=== PATIENT | female | born 1950 ===

== ENCOUNTER → 2023-03-01 | Outpatient (CLI) | payer OTHER ==
[2023-03-01 12:53] LABS: Basophils # (auto) 0 10 ^3/uL (0-0.2); Eosinophils # (auto) 0.2 10 ^3/uL (0-0.8); Eosinophils % (auto) 4.2 % (0.0-7.0); Hemoglobin 12.1 g/dL (12.2-16.2); Lymphocytes # (auto) 1.9 10 ^3/uL (0.4-5.4); Lymphocytes % (auto) 38.9 % (10.0-50.0); Mean Corpuscular Hemoglobin 30.3 pg (28.0-32.0); Mean Corpuscular Hgb Conc. 32.8 g/dL (32.0-36.0); Mean Corpuscular Volume 92.2 fL (80.0-100.0); Monocytes # (auto) 0.3 10 ^3/uL (0-1.3); Monocytes % (auto) 6.2 % (0.0-12.0); Neutrophils # (auto) 2.4 10 ^3/uL (1.6-8.6); Neutrophils % (auto) 49.7 % (37.0-80.0); Nucleated Red Blood Cells % 0.2 %; Red Blood Cells 4.01 10^6/uL (4.0-5.20); Red Cell Distribution Width 13.3 % (11.8-14.3); White Blood Cell 4.8 10^3/uL (4.4-10.8)
[2023-03-01 12:58] LABS: Potassium 4.4 mmol/L (3.5-5.1)
[2023-03-01 13:07] LABS: Albumin 3.6 g/dL (3.4-5.0); BUN/Creatinine Ratio 17.6 (10.0-20.0); Bilirubin, Total 0.5 mg/dL (0.2-1.0); Total Protein 7.1 g/dL (6.4-8.2)
== END | disposition home or self-care (01) ==
LOC: LAB 12:13
PROVIDERS: ATTEND Internal Medicine
DX: Z12.11 Encounter for screening for malignant neoplasm of colon (principal); E78.00 Pure hypercholesterolemia, unspecified; E11.9 Type 2 diabetes mellitus without complications; R68.89 Other general symptoms and signs
CPT/HCPCS: 36415; 80053; 80061; 83036; 85025

== ENCOUNTER → 2024-02-28 | Outpatient (CLI) | payer OTHER ==
[2024-02-28 14:10] LABS: Basophils # (auto) 0 10 ^3/uL (0-0.2); Basophils % (auto) 1.1 % (0.0-2.0); Eosinophils # (auto) 0.1 10 ^3/uL (0-0.8); Eosinophils % (auto) 3.1 % (0.0-7.0); Hematocrit 37.4 % (36.0-46.0); Hemoglobin 12.2 g/dL (12.2-16.2); Lymphocytes # (auto) 1.8 10 ^3/uL (0.4-5.4); Lymphocytes % (auto) 39.3 % (10.0-50.0); Mean Corpuscular Hemoglobin 30.3 pg (28.0-32.0); Mean Corpuscular Hgb Conc. 32.6 g/dL (32.0-36.0); Monocytes # (auto) 0.3 10 ^3/uL (0-1.3); Monocytes % (auto) 6.7 % (0.0-12.0); Neutrophils # (auto) 2.3 10 ^3/uL (1.6-8.6); Neutrophils % (auto) 49.8 % (37.0-80.0); Red Blood Cells 4.03 10^6/uL (4.0-5.20); Red Cell Distribution Width 12.4 % (11.8-14.3); White Blood Cell 4.5 10^3/uL (4.4-10.8)
[2024-02-28 14:44] LABS: Alanine Aminotransferase 16 U/L (7-40); Albumin 4.3 g/dL (3.2-4.8); Alkaline Phosphatase 59 U/L (46-116); Anion Gap 3 (5-15); Aspartate Aminotransferase 17 U/L (13-40); BUN/Creatinine Ratio 16.4 (10.0-20.0); Blood Urea Nitrogen 12 mg/dL (9-23); Calcium 9.6 mg/dL (8.5-10.1); Carbon Dioxide 31 mmol/L (20-30); Chloride 107 mmol/L (98-107); Cholesterol 138 mg/dL (< 200); Glucose 92 mg/dL (74-106); HDL Cholesterol 67 mg/dL (40-59); LDL Cholesterol 55 mg/dL (< 100); Potassium 4.2 mmol/L (3.5-5.1); Sodium 141 mmol/L (136-145); Triglycerides 83 mg/dL (< 150)
[2024-02-28 14:45] LABS: Bilirubin, Total 0.5 mg/dL (0.2-1.0); Total Protein 6.8 g/dL (5.7-8.2)
== END | disposition home or self-care (01) ==
LOC: LAB 14:00
PROVIDERS: ATTEND Internal Medicine
DX: Z12.11 Encounter for screening for malignant neoplasm of colon (principal); E78.00 Pure hypercholesterolemia, unspecified; R68.89 Other general symptoms and signs
CPT/HCPCS: 36415; 80053; 80061; 85025

== ENCOUNTER 2025-03-27 23:39 | Emergency (ER) | payer OTHER ==
[~2025-03-27] VITALS: Ht 157.5 cm; Wt 54.1 kg
[2025-03-28] MEDS: IBUPROFEN 600 MG TAB PO ONE (00:18)
--- NOTE | 2025-03-28 00:27 | ED.PDOC ---
History of Present Illness HPI Comments 75-year-old female, with a history of arthritis, hypertension, and hyperlipidemia, presents with flu-like symptoms. Patient endorses on a have productive cough, rate, sore throat, chills, and body aches since yesterday afternoon. She also reports on having associated mild shortness of breath had subsided prior to arrival. She admits to taking Tylenol prior to arrival as well. Patient comments on possible sick contact exposure when she went to the store on March 24, 2025 in encounter noted individual who was coughing but informs and wearing a mask been. She denies having any chest pain, nausea, vomiting, urinary issues, or further associated symptoms Chief Complaint: Flu like Time Seen by MD: 00:15 Reviewed Notes: Nurses Notes, Medications, Allergies Allergies: Coded Allergies: Codeine (Verified Allergy, Unknown, 03/28/25) Meperidine (Verified Allergy, Unknown, 03/28/25) Penicillins (Verified Allergy, Unknown, 03/28/25) Information Source: Patient Mode of Arrival: Ambulatory Severity: Mild Timing: Hours Duration: Since onset Prehospital treatment: Treatment (Tylenol) Review of Systems: REVIEW OF SYSTEMS: fever, chills, body aches, no fatigue HEENT: sore throat, no earache, no congestion, no neck pain. Cardiac: No chest pain. No palpitations. Lungs: Cough and congestion. No shortness of breath. GI: No nausea, no vomiting, no diarrhea, no constipation, no abdominal pain : No dysuria, frequency, or urgency. No hematuria. Musculoskeletal: No joint pain , no joint swelling, no extremity edema. Skin: No rash, no itching. Neuro: No headache, no dizziness, no weakness Vital Signs Vital Signs Date Time Temp Pulse Resp B/P (MAP) Pulse Ox O2 Delivery O2 Flow Rate FiO2 03/28/25 04:56 18 96 Room Air* 0 21 21 03/28/25 03:39 98.5 03/28/25 03:29 82 143/73 (96) Physical Exam General: Awake, alert and oriented. No acute distress. Skin: Skin in warm, dry and intact. Appropriate color for ethnicity. HEENT: The head is normocephalic and atraumatic. Conjunctivae are clear without exudates or hemorrhage. Sclera is non-icteric. EOM are intact. No signs of nystagmus. Eyelids are normal in appearance without swelling or lesions. Oral mucosa is pink and moist Neck: The neck is supple with normal range of motion. No JVD. Cardiac: Tachycardic heart rate but rhythm is normal. No murmurs, gallops, or rubs are auscultated. Respiratory: No signs of respiratory distress. Crackles in left lung. Otherwise, lung sounds are clear in all lobes bilaterally without rales, rhonch i, or wheezes. Abdominal: Abdomen is soft, non-tender without distention, guarding or rigidity. Bowel sounds are present and normoactive in all four quadrants. Extremities: Upper and lower extremities are atraumatic in appearance without deformity or edema. Neurological: The patient is awake, alert and oriented to person, place, and time with normal speech. Speech is clear. There is no facial asymmetry. Psychiatric: Appropriate mood and affect. Good judgement and insight. Past Medical History PAST MEDICAL HISTORY: Arthritis, High Lipids, HTN Surgical History: Denies all surgeries MEDICAL HEALTH RESEARCHER History: Denies all MEDICAL HEALTH RESEARCHER Hx Family History Family History: Unknown Social History Smoker: Non-Smoker Alcohol: Denies ETOH Use Drugs: Denies Drug Use Lives In: Home Was a procedure done? Was a procedure done?: No Differential Dx Considerations may include: Viral illness, pharyngitis, otitis media, bacteremia, pneumonia, UTI, meningitis, sepsis, other X-Ray, Labs, Meds, VS Vital Signs Date Time Temp Pulse Resp B/P (MAP) Pulse Ox O2 Delivery O2 Flow Rate FiO2 03/28/25 04:56 18 96 Room Air* 0 21 21 03/28/25 03:39 98.5 03/28/25 03:29 98.5 82 18 143/73 (96) 95 98.5 03/28/25 00:18 100.8 03/28/25 00:01 100.8 126 16 156/87 (110) 94 100.8 Lab Test 03/28/25 04:40 03/28/25 00:58 03/28/25 00:05 Range/Units Urine Color Colorless Yellow Urine Clarity Clear Clear Urine pH 6.0 5.0-9.0 Urine Specific [place] 1.004 1.001-1.035 Urine Protein Negative Negative Urine Ketones Negative Negative Urine Blood Trace H Negative /uL Urine Nitrite Negative Negative Urine Bilirubin Negative Negative Urine Urobilinogen Normal Negative mg/dL Urine Leukocyte Esterase Negative Negative /uL Urine RBC None seen 0 - 4 /hpf Urine Microscopic WBC < 1 0-5 /HPF Urine Squamous Epithelial Cells None seen <5 /hpf Urine Bacteria None seen None Seen /hpf Urine Glucose Normal Normal mg/dL White Blood Count 10.5 4.4-10.8 10^3/uL Red Blood Count 4.16 4.0-5.20 10^6/uL Hemoglobin 12.9 12.2-16.2 g/dL Hematocrit 37.9 36.0-46.0 % Mean Corpuscular Volume 91.1 80.0-100.0 fL Mean Corpuscular Hemoglobin 31.0 28.0-32.0 pg Mean Corpuscular Hemoglobin Concent 34.1 32.0-36.0 g/dL Red Cell Distribution Width 12.9 11.8-14.3 % Platelet Count 182 140-450 10^3/uL Mean Platelet Volume 9.4 6.9-10.8 fL Neutrophils (%) (Auto) 89.6 H 37.0-80.0 % Lymphocytes (%) (Auto) 5.6 L 10.0-50.0 % Monocytes (%) (Auto) 4.4 0.0-12.0 % Eosinophils (%) (Auto) 0.1 0.0-7.0 % Basophils (%) (Auto) 0.3 0.0-2.0 % Neutrophils # (Auto) 9.4 H 1.6-8.6 10 ^3/uL Lymphocytes # (Auto) 0.6 0.4-5.4 10 ^3/uL Monocytes # (Auto) 0.5 0-1.3 10 ^3/uL Eosinophils # (Auto) 0 0-0.8 10 ^3/uL Basophils # (Auto) 0 0-0.2 10 ^3/uL Nucleated Red Blood Cells 0.0 % Sodium Level 140 136-145 mmol/L Potassium Level 3.8 3.5-5.1 mmol/L Chloride Level 105 98-107 mmol/L Carbon Dioxide Level 26 20-31 mmol/L Anion Gap 9 5-15 Blood Urea Nitrogen 13 9-23 mg/dL Creatinine 0.69 0.550-1.02 mg/dL Glomerular Filtration Rate Calc 90 >90 mL/min BUN/Creatinine Ratio 18.8 10.0-20.0 Serum Glucose 127 H 74-106 mg/dL Lactic Acid Level 1.4 0.4-2.0 mmol/L Calcium Level 9.3 8.7-10.4 mg/dL B-Type Natriuretic Peptide 59.64 0-100 pg/mL Influenza Type A Antigen Negative Negative Influenza Type B Antigen Negative Negative SARS-CoV-2 Antigen (Rapid) Negative NEGATIVE Current Medications Medications (Trade) Dose Ordered Sig/Jeanie Route Start Time Stop Time Status Last Admin Ibuprofen (Motrin Tablet) 600 mg ONCE ONCE PO 03/28/25 00:15 03/28/25 00:16 DC 03/28/25 00:18 Sodium Chloride 1,000 ml @ 1,000 mls/hr Q1H ONCE IV 03/28/25 00:45 03/28/25 01:44 DC 03/28/25 03:39 [place] [id number] Ph: [phone] DIAGNOSTIC IMAGING Diagnostic Imaging Report : [id number] Signed PATIENT: JESSICA HAN ACCT: [id number] UNIT: [id number] : 1950 LOC: ER ROOM / BED: / AGE / SEX: 75 / F ADM STATUS: REG ER SERVICE ORDERING PHYSICIAN: RACHAEL SAEZ MD PROCEDURE(s): CXR1 - CHEST XRAY 1 VIEW REASON: Suspected Sepsis ORDER NUMBER(s): [id number], ACCESSION NUMBER(s): [id number] CHEST RADIOGRAPH Indication: Suspected Sepsis Technique: Single frontal view of the chest was obtained COMPARISON: None FINDINGS: Lines and Tubes: None Lungs: Clear Pleura: No effusion. No pneumothorax. Cardiomediastinal contours: Unremarkable Bones: Unremarkable. Thoracic dextroscoliosis noted. IMPRESSION: 1. No acute disease. ATED BY: HAYDER EATON MD DICTATED DATE/TIME: 03/28/25132 SIGNED BY: HAYDER EATON MD SIGNED DATE/TIME: 03/28/25132 CC: Time of 1ST Reevaluation: 00:45 Reevaluation 1ST: Unchanged Patient Education/Counseling: Treatment, Need For Follow Up Family Education/Counseling: No Family Present Sepsis Sepsis Reasesment Focused Exam Orders: Laboratory Tests 03/28/25 00:58: Lactic Acid Level 1.4 Departure 1 Departure Time of Disposition: 05:06 Impression: Primary Impression: Fever Disposition: HOME / SELF CARE / HOMELESS Condition: Stable Additional Instructions: ED DISCHARGE INSTRUCTIONS Instructions: Please read all instructions provided in this packet carefully. Although you have been discharged from the Emergency Department, this does not mean that you have a "clean bill of health". No definitive diagnosis for your symptoms has been made today. It is possible that you are in the process of developing a serious illness. This is why you must return to the ED without fail if any new or worsening symptoms (especially if your symptoms include chest pain, trouble breathing, abdominal pain, fever, headache, confusion, trouble seeing, or trouble walking) It is also very important that you see a primary care doctor within the next 2-3 days to follow up. If you are unable to get an appointment, return to the ED for re-evaluation. Comments 75-year-old female who presented with fever. Workup negative for any source of infection here in the emergency department. She patient is well-appearing, nontoxic. Heart rate improved. Patient advised to follow up with the primary care provider promptly for re-evaluation and return to the emergency department with any new, worsening or concerning symptoms Critical Care Note Critical Care Time?: No Stability Stability form required: No Heart Score Heart Score: Heart Score Response (Comments) Value History N/A 0 EKG N/A 0 Age N/A 0 Risk Factors N/A 0 Troponin N/A 0 Total 0 I personally scribed for RACHAEL SAEZ MD ([email or web address]) on 03/28/25 at 00:27. Electronically submitted by Jesus Rae ([email or web address]). I personally scribed for RACHAEL SAEZ MD ([email or web address]) on 03/28/25 at 01:46. Electronically submitted by Jesus Rae ([email or web address]). RACHAEL SAEZ MD Mar 28, 2025 00:27
[2025-03-28 00:56] LABS: COVID19 ANTIGEN SOFIA FIA NEGATIVE (NEGATIVE); Rapid Influenza A Negative (Negative); Rapid Influenza B Negative (Negative)
[2025-03-28 01:30] LABS: Chloride 105 mmol/L (98-107); Potassium 3.8 mmol/L (3.5-5.1); Sodium 140 mmol/L (136-145)
[2025-03-28 01:31] LABS: Anion Gap 9 (5-15); Carbon Dioxide 26 mmol/L (20-31)
[2025-03-28 01:32] LABS: Basophils # (auto) 0 10 ^3/uL (0-0.2); Basophils % (auto) 0.3 % (0.0-2.0); Calcium 9.3 mg/dL (8.7-10.4); Eosinophils # (auto) 0 10 ^3/uL (0-0.8); Eosinophils % (auto) 0.1 % (0.0-7.0); Hematocrit 37.9 % (36.0-46.0); Hemoglobin 12.9 g/dL (12.2-16.2); Lymphocytes # (auto) 0.6 10 ^3/uL (0.4-5.4); Lymphocytes % (auto) 5.6 % (10.0-50.0); Mean Corpuscular Hgb Conc. 34.1 g/dL (32.0-36.0); Mean Corpuscular Volume 91.1 fL (80.0-100.0); Monocytes # (auto) 0.5 10 ^3/uL (0-1.3); Monocytes % (auto) 4.4 % (0.0-12.0); Neutrophils # (auto) 9.4 10 ^3/uL (1.6-8.6); Neutrophils % (auto) 89.6 % (37.0-80.0); Platelet Count (auto) 182 10^3/uL (140-450); Red Blood Cells 4.16 10^6/uL (4.0-5.20); Red Cell Distribution Width 12.9 % (11.8-14.3); White Blood Cell 10.5 10^3/uL (4.4-10.8)
[2025-03-28 01:36] LABS: BUN/Creatinine Ratio 18.8 (10.0-20.0); Blood Urea Nitrogen 13 mg/dL (9-23)
--- NOTE | 2025-03-28 01:36 | DVH ---
CHEST RADIOGRAPH Indication: Suspected Sepsis Technique: Single frontal view of the chest was obtained COMPARISON: None FINDINGS: Lines and Tubes: None Lungs: Clear Pleura: No effusion. No pneumothorax. Cardiomediastinal contours: Unremarkable Bones: Unremarkable. Thoracic dextroscoliosis noted. IMPRESSION: 1. No acute disease.
[2025-03-28 01:49] LABS: Glucose 127 mg/dL (74-106)
[2025-03-28 03:29] VITALS: BP 143/73; PULSE 82
[2025-03-28 03:39] VITALS: TEMP 98.5
[2025-03-28] MEDS: SODIUM CHLORIDE 0.9% 1,000 ML IV ONE (03:39)
[2025-03-28 04:42] LABS: Urine Bacteria None Seen /hpf (None Seen)
[2025-03-28 04:56] VITALS: RESP 18; O2SAT 96
[2025-03-28 05:00] LABS: Urine Blood TRACE /uL (Negative); Urine Clarity Clear (Clear); Urine Color Colorless (Yellow); Urine Protein, UAD Negative (Negative); Urine Specific Gravity 1.004 (1.001-1.035); Urine Squamous Epithelial Cell None Seen /hpf (<5); Urine Urobilinogen Normal (Negative); Urine WBC < 1 /HPF (0-5)
== END 2025-03-28 05:25 | disposition home or self-care (01) ==
LOC: ER 23:45
DX: R50.9 Fever, unspecified (principal); I10 Essential (primary) hypertension; M19.90 Unspecified osteoarthritis, unspecified site; Z88.0 Allergy status to penicillin; Z79.899 Other long term (current) drug therapy; Z20.822 Contact with and (suspected) exposure to COVID-19
CPT/HCPCS: 36415; 71045; 80048; 81001; 83605; 83880; 85025; 87040; 87426; 87804; 96360; 99284; J7030

== ENCOUNTER 2025-05-30 12:35 | Outpatient (CLI) | payer OTHER ==
[2025-05-30 12:49] LABS: Hematocrit 38.6 % (36.0-46.0); Hemoglobin 13.1 g/dL (12.2-16.2); Mean Corpuscular Hemoglobin 30.8 pg (28.0-32.0); Mean Corpuscular Volume 90.9 fL (80.0-100.0); Nucleated Red Blood Cells % 0.1 %
[2025-05-30 13:41] LABS: Alanine Aminotransferase 16 U/L (7-40); Albumin 4.6 g/dL (3.2-4.8); Alkaline Phosphatase 62 U/L (46-116); Anion Gap 6 (5-15); BUN/Creatinine Ratio 17.3 (10.0-20.0); Bilirubin, Total 0.5 mg/dL (0.2-1.0); Blood Urea Nitrogen 13 mg/dL (9-23); Calcium 9.4 mg/dL (8.7-10.4); Carbon Dioxide 30 mmol/L (20-31); Chloride 106 mmol/L (98-107); Cholesterol 141 mg/dL (< 200); Glucose 88 mg/dL (74-106); Potassium 4.8 mmol/L (3.5-5.1); Sodium 142 mmol/L (136-145); Total Protein 6.9 g/dL (5.7-8.2); Triglycerides 105 mg/dL (< 150)
[2025-05-30 13:44] LABS: HDL Cholesterol 71 mg/dL (40-59)
== END 2025-05-30 17:00 | disposition home or self-care (01) ==
LOC: LAB 12:35
PROVIDERS: ATTEND Internal Medicine
DX: E78.00 Pure hypercholesterolemia, unspecified (principal); R68.89 Other general symptoms and signs
CPT/HCPCS: 36415; 80053; 80061; 85025

== ENCOUNTER 2025-05-30 12:41 | Outpatient (CLI) | payer OTHER | END 2025-05-30 17:00 | disposition home or self-care (01) | LOC: LAB 12:41 | PROVIDERS: ATTEND Internal Medicine | DX: Z12.11 Encounter for screening for malignant neoplasm of colon (principal) | CPT/HCPCS: 82270 ==